=== PATIENT | female | born 2000 | race African-American/Black ===

== ENCOUNTER 2020-03-13 14:16 | Emergency (ER) | payer MEDICAID ==
[~2020-03-13] VITALS: Ht 165.1 cm; Wt 69.0 kg
[2020-03-13 16:31] VITALS: BP 108/66
== END 2020-03-13 22:33 | disposition home or self-care (01) ==
LOC: ER 14:16
DX: S09.90XA Unspecified injury of head, initial encounter (principal); M25.531 Pain in right wrist; Z98.890 Other specified postprocedural states; V49.40XA Driver injured in collision with unspecified motor vehicles in traffic accident, initial encounter; Y93.89 Activity, other specified; Y92.89 Other specified places as the place of occurrence of the external cause; Y99.8 Other external cause status
CPT/HCPCS: 73110; 93005; 99284

== ENCOUNTER 2020-05-16 13:03 | Emergency (ER) | payer MEDICAID ==
[~2020-05-16] VITALS: Ht 157.5 cm; Wt 53.0 kg
[2020-05-16] MEDS ORDERED: KETOROLAC 30MG/ML VIAL IM ONE (13:15)
[2020-05-16] MEDS ORDERED: METOCLOPRAMIDE HCL 10MG/2ML VIAL IM ONE (13:15)
[2020-05-16] MEDS ORDERED: DIPHENHYDRAMINE 12.5MG/5ML UDC PO ONE (13:15)
[2020-05-16 13:48] VITALS: BP 115/68
== END 2020-05-16 14:29 | disposition home or self-care (01) ==
LOC: ER 13:03
DX: R51 Headache (principal); D64.9 Anemia, unspecified; K50.90 Crohn's disease, unspecified, without complications
CPT/HCPCS: 96372; 99284; J1885; J2765; Q0163